=== PATIENT | female | born 2000 | race Native Hawaiian/Other Pacific Islander ===

== ENCOUNTER 2022-04-07 08:58 | Inpatient (IN) | payer MEDICAID, OTHER ==
[~2022-04-07] VITALS: Ht 149.9 cm; Wt 68.0 kg
[2022-04-07 10:33] LABS: EOSINOPHILS % (AUTO) 3.7 % (1.0-6.0); HEMATOCRIT 27.8 % (36-46); HEMOGLOBIN 8.6 g/dL (12.0-16.0); LYMPHOCYTES # (AUTO) 1.2 K/uL (1.0-4.8); LYMPHOCYTES % (AUTO) 17.9 % (22.0-44.0); MEAN CORPUSCULAR HEMOGLOBIN 18.5 pg (26.0-34.0); MEAN CORPUSCULAR HGB CONC 31.1 G/dL (31.0-37.0); MEAN CORPUSCULAR VOLUME 59 fL (80-100); MONOCYTES # (AUTO) 0.5 K/uL (0.1-1.0); MONOCYTES % (AUTO) 7.6 % (2.0-9.0); NEUTROPHILS # (AUTO) 4.7 K/uL (1.8-7.7); NEUTROPHILS % (AUTO) 69.8 % (40.0-70.0); PLATELET COUNT (AUTO) 317 K/uL (150-450); RED BLOOD CELL COUNT(AUTO) 4.68 MIL/uL (4.00-5.20); RED CELL DISTRIBUTION WIDTH 21.3 % (11.5-14.5)
[2022-04-07 10:50] LABS: ANION GAP 13 mmol/L (8-16); CALCIUM, TOTAL 9.2 mg/dL (8.8-10.5); CARBON DIOXIDE 21 mmol/L (22-29); CHLORIDE 105 mmol/L (98-107); CREATININE 0.81 mg/dL (0.60-1.30); GLOMERULAR FILTR. RATE CALC > 60 mL/min (>60); GLUCOSE,RANDOM 88 mg/dL (70-110); POTASSIUM 3.9 mmol/L (3.5-5.1); SODIUM SERUM 139 mmol/L (136-145); UREA NITROGEN, BLOOD 9 mg/dL (7-18)
[2022-04-07 10:56] LABS: ALANINE AMINOTRANSFERASE 22 U/L (12-78); ALBUMIN 3.4 g/dL (3.4-5.0); ALKALINE PHOSPHATASE 42 U/L (46-116); ASPARTATE AMINOTRANSFERASE 18 U/L (15-37); BILIRUBIN,TOTAL 0.3 mg/dL (0.1-1.0); TOTAL PROTEIN, SERUM 7.5 g/dL (6.4-8.2)
[2022-04-07] MEDS ORDERED: LORazepam 2 MG TABLET PO ONE (13:15)
[2022-04-07] MEDS ORDERED: HALOPERIDOL 5 MG TABLET PO PRN (14:45)
[2022-04-07 16:09] LABS: COVID AG,FIA SOURCE NASAL SWAB
[2022-04-07] MEDS: ZOLPIDEM TARTRATE 5 MG TABLET PO PRN (21:36)
[2022-04-07 21:50] VITALS: BP 136/72
[2022-04-08] MEDS: LORazepam 2 MG TABLET PO PRN ×3 (08:39→18:37)
[2022-04-08 08:58] VITALS: BP 132/78
[2022-04-08] MEDS: ZOLPIDEM TARTRATE 5 MG TABLET PO PRN (20:33)
[2022-04-08 20:36] VITALS: BP 126/84
[2022-04-08] MEDS ORDERED: ALBUTEROL SULFATE HFA 90 MCG/PUFF 8 GM INHALER IH PRN (22:15)
[2022-04-08] MEDS ORDERED: DOCUSATE SODIUM 100 MG CAPSULE PO PRN (22:15)
[2022-04-08] MEDS ORDERED: CloNIDine HCL 0.1 MG TABLET PO PRN (22:15)
[2022-04-08] MEDS ORDERED: MAG HYDROX/AL HYDROX/SIMETH ES 30 ML SUSPENSION UDCUP PO PRN (22:15)
[2022-04-08] MEDS ORDERED: BENZOCAINE/MENTHOL LOZENGE PO PRN (22:15)
[2022-04-08] MEDS ORDERED: ONDANSETRON HCL 4 MG TABLET PO PRN (22:15)
[2022-04-08] MEDS ORDERED: OMEPRAZOLE 20 MG CAPSULE PO PRN (22:15)
[2022-04-08] MEDS ORDERED: LOPERAMIDE HCL 2 MG CAPSULE PO PRN (22:15)
[2022-04-08] MEDS ORDERED: PETROLATUM,WHITE 28 GM JELLY TP PRN (22:15)
[2022-04-08] MEDS ORDERED: ACETAMINOPHEN 325 MG TABLET PO PRN (22:15)
[2022-04-08] MEDS ORDERED: IBUPROFEN 600 MG TABLET PO PRN (22:15)
[2022-04-08] MEDS ORDERED: BACITRACIN 28 GM OINTMENT TP PRN (22:15)
[2022-04-08] MEDS ORDERED: MAGNESIUM HYDROXIDE SUSPENSION 30 ML UDCUP PO PRN (22:15)
[2022-04-09 07:18] VITALS: BP 118/70
[2022-04-09] MEDS: LORazepam 2 MG TABLET PO PRN (07:23)
[2022-04-09] MEDS ORDERED: PRENATAL NO.137/IRON/FOLIC ACID TABLET PO SCH (09:00)
[2022-04-09] MEDS ORDERED: CITALOPRAM HYDROBROMIDE 20 MG TABLET PO SCH (09:00)
[2022-04-09 09:07] VITALS: BP 133/54
[2022-04-09] MEDS ORDERED: CITA-144 PO (15:18)
== END 2022-04-09 16:00 | disposition home or self-care (01) | DRG 754 ==
LOC: EMS 09:02 → B2S 16:47
PROVIDERS: ADMIT Psychiatry & Neurology Psychiatry; ATTEND Psychiatry & Neurology Psychiatry
DX: F32.9 Major depressive disorder, single episode, unspecified (principal); F22 Delusional disorders; R45.851 Suicidal ideations; D64.9 Anemia, unspecified; Z20.822 Contact with and (suspected) exposure to COVID-19; Z87.891 Personal history of nicotine dependence
CPT/HCPCS: 80053; 84703; 85025; 99285; G0480